=== PATIENT | female | born 1960 | race American Indian/Alaskan Native ===

== ENCOUNTER 2016-09-19 08:41 | Outpatient (CLI) | payer OTHER ==
[2016-09-19] MEDS ORDERED: PROVENTIL IH ONE (09:13)
== END 2016-09-19 08:42 | disposition home or self-care (01) ==
LOC: PF 08:41
PROVIDERS: ATTEND Internal Medicine
DX: J44.9 Chronic obstructive pulmonary disease, unspecified (principal); G43.909 Migraine, unspecified, not intractable, without status migrainosus; J45.909 Unspecified asthma, uncomplicated; G62.9 Polyneuropathy, unspecified; I45.9 Conduction disorder, unspecified; J98.4 Other disorders of lung; G47.00 Insomnia, unspecified; M79.7 Fibromyalgia; M53.82 Other specified dorsopathies, cervical region; M53.86 Other specified dorsopathies, lumbar region
CPT/HCPCS: 94060; 94640; 94729